=== PATIENT | male | born 1990 | race Caucasian/White ===

== ENCOUNTER 2017-08-20 13:20 | Emergency (ER) | payer SELFPAY ==
[~2017-08-20] VITALS: Ht 195.6 cm; Wt 132.0 kg
[2017-08-20 13:34] VITALS: Ht 195.6 cm; Wt 132.0 kg
[2017-08-20 14:02] VITALS: BP 139/85
== END 2017-08-20 14:02 | disposition home or self-care (01) ==
LOC: ED 13:20
DX: H66.93 Otitis media, unspecified, bilateral (principal); R03.0 Elevated blood-pressure reading, without diagnosis of hypertension